=== PATIENT | female | born 1995 | race Caucasian/White ===

== ENCOUNTER 2020-10-21 19:22 | Emergency (ER) | payer MEDICAID ==
[~2020-10-21] VITALS: Ht 170.2 cm; Wt 88.0 kg
[2020-10-21] MEDS ORDERED: OFLO5DRO4 RIGHT EAR (22:35)
[2020-10-21 22:44] VITALS: BP 115/72
== END 2020-10-21 22:45 | disposition home or self-care (01) ==
LOC: ER 19:22
DX: T16.1XXA Foreign body in right ear, initial encounter (principal); I10 Essential (primary) hypertension; Z79.899 Other long term (current) drug therapy; X58.XXXA Exposure to other specified factors, initial encounter; Y93.89 Activity, other specified; Y92.89 Other specified places as the place of occurrence of the external cause; Y99.8 Other external cause status
CPT/HCPCS: 69200; 99284